=== PATIENT | female | born 1945 | race Caucasian/White ===

== ENCOUNTER 2017-06-28 09:19 | Emergency (ER) | payer MEDICARE ==
[2017-06-28] MEDS ORDERED: Diazepam 5 MG TAB ONE (11:29)
[2017-06-28] MEDS ORDERED: HYDROcodone/Acetaminophen 10/325 mg Tablet ONE (11:29)
--- NOTE | 2017-06-28 11:35 | RAD ---
2 VIEWS LEFT FEMUR: Date: 06/28/17 COMPARISON: None. HISTORY: Left lower extremity pain after fall. COMPARISON: 08/12/16. FINDINGS: Two views of the left femur show the patient to be status post intramedullary pierre fixation of a femu r fracture which appears healed. No acute fracture or dislocation is seen. No perihardware lucency i s identified. IMPRESSION: No evidence of acute osseous abnormality. POS: [facility]
--- NOTE | 2017-06-28 11:36 | RAD ---
2 VIEWS LEFT HIP: Date: 06/28/17 COMPARISON: None. HISTORY: Fall with left hip pain and left leg pain. FINDINGS: Two views of the left hip show no evidence of acute fracture or dislocation. There is hardware in th e proximal femur from prior fracture repair. No degenerative changes seen in the left hip. IMPRESSION: No evidence of acute osseous abnormality of the left hip. POS: [facility]
== END 2017-06-28 13:39 | disposition home or self-care (01) ==
LOC: ERS 09:19
DX: M79.652 Pain in left thigh (principal); M25.552 Pain in left hip; M25.562 Pain in left knee; W18.09XA Striking against other object with subsequent fall, initial encounter
CPT/HCPCS: 51701

== ENCOUNTER 2017-07-03 10:17 | Inpatient (IN) | payer MEDICARE ==
[2017-07-03] MEDS ORDERED: Morphine 10 MG/ML VIAL ONE (11:32)
[2017-07-03] MEDS ORDERED: Ketorolac Tromethamine 30 MG/ML VIAL ONE (11:32)
[2017-07-03 11:33] LABS: Prothrombin Time 13.9 SEC (12.0-14.7)
[2017-07-03 11:34] LABS: PTT 40.3 SEC (22.9-36.1)
[2017-07-03 11:36] LABS: #Eosinphils 0.3 thou/uL (0.0-0.7); #Lymphocytes 1.9 thou/uL (1.20-3.40); #Monocytes 1.1 thou/uL (0.11-0.59); %Basophils 0.2 % (0.0-1.0); %Eosinophils 1.3 % (0.0-10.0); %Lymphocytes 9.8 % (21.0-51.0); %Monocytes 5.9 % (0.0-10.0); Hematocrit 43.5 % (36.0-47.0); Mean Platelet Volume 6.5 fL (7.4-10.4); White Blood Cell (WBC) Count 19.3 thou/uL (4.8-10.8)
[2017-07-03 11:52] LABS: ALT (SGPT) 11 U/L (8-55); AST (SGOT) 18 U/L (5-34); Alkaline Phosphatase 123 U/L (40-150); Anion Gap 15 mmol/L (10-20); BUN (Urea Nitrogen) 13 mg/dL (9.8-20.1); Bilirubin, Total 0.5 mg/dL (0.2-1.2); Calc. Creatinine Clearance 0 mL/min (70-130); Calcium 10.5 mg/dL (7.8-10.44); Carbon Dioxide 26 mmol/L (23-31); Chloride 105 mmol/L (98-107); Estimated GFR-MDRD 74
--- NOTE | 2017-07-03 12:40 | CT ---
CT OF PELVIS PERFORMED WITHOUT CONTRAST ENHANCEMENT: HISTORY: Fall with persistent hip pain. FINDINGS: The bones are demineralized. There are arthritic changes of the lower lumbar spine. There is sigmo id diverticulosis noted. The pelvic ring is intact. No signs of any fractures of the bony pelvic ring. Intramedullary pierre is seen within the femoral shaft. There is an acute-appearing fracture which is basically an intratrochanteric fracture along the base of the femoral neck and intratrochanteric reg ion. Minimal displacement is seen associated with this. IMPRESSION: Intratrochanteric acute-appearing fracture of the left hip. Findings telephoned to Dr. Hopson. CODE CR POS: [facility]
--- NOTE | 2017-07-03 12:59 | RAD ---
LEFT FEMUR FOUR VIEWS: 07/03/17 HISTORY: Fall. The bones are demineralized. There is an intertrochanteric fracture of the left hip. An intramedulla ry pierre stables an older distal femoral shaft fracture in place. IMPRESSION: Intertrochanteric fracture of the left hip with a minimal coxa vera deformity to the fracture. POS: [facility]
[2017-07-03] MEDS ORDERED: Fleet Enema 133 ML BOT PR PRN (13:40)
[2017-07-03] MEDS ORDERED: traMADol HCl 50 MG TAB PO PRN ×3 (13:40→20:33)
[2017-07-03] MEDS ORDERED: Ondansetron HCl/PF 4 MG/2 ML Vial IVP PRN ×3 (13:40→20:33)
[2017-07-03] MEDS ORDERED: Milk Of Magnesia 30 ML UDCUP PO PRN (13:40)
[2017-07-03] MEDS ORDERED: Ondansetron ODT 4 MG TAB PO PRN ×2 (13:40→20:33)
[2017-07-03] MEDS ORDERED: Bisacodyl 10 MG SUPP PR PRN (13:40)
[2017-07-03] MEDS ORDERED: CEFAZOLIN/Water 2 GM/20 ML SYRINGE SLOW IVP SCH (13:45)
[2017-07-03] MEDS ORDERED: Sodium Chloride 0.9% 1,000 ML IV SCH (13:45)
--- NOTE | 2017-07-03 14:00 | RAD ---
PORTABLE CHEST: Date: 07/03/17 PROVIDED CLINICAL HISTORY: Preop. FINDINGS: Comparison made with the study dated 08/05/16. The cardiac and mediastinal silhouette is within normal limits. No focal consolidation, pleural flui d, or pneumothorax apparent. Vascular calcification involves the aortic arch. IMPRESSION: No evidence for an acute cardiopulmonary process. POS: [facility]
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
[2017-07-03] MEDS ORDERED: CEFAZOLIN/Water 2 GM/20 ML SYRINGE ONE (16:04)
[2017-07-03] MEDS ORDERED: Midazolam HCl 2 mg/2 ml Vial ONE (16:54)
[2017-07-03] MEDS ORDERED: Fentanyl 100 MCG/2 ML VIAL ONE (16:55)
[2017-07-03] MEDS ORDERED: Acetaminophen 650 MG in Premix Bag 1 BAG IVPB SCH (17:00)
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
[2017-07-03] MEDS ORDERED: PHENYLEPHRINE-NS 100 MCG/ML 10 ML SYRINGE ONE (17:14)
[2017-07-03] MEDS ORDERED: Dexamethasone 20 MG/5 ML VIAL ONE (17:14)
[2017-07-03] MEDS ORDERED: Propofol 200 MG/20 ML VIAL ONE (17:14)
[2017-07-03] MEDS ORDERED: ePHEDrine/0.9% NaCl/PF SYRINGE 50 mg/10 ml ONE (17:14)
[2017-07-03] MEDS ORDERED: Phenylephrine 10 MG/NS 250 ML 250 ML ONE (17:59)
[2017-07-03] MEDS ORDERED: Ketorolac Tromethamine 30 MG/ML VIAL IVP SCH (18:00)
[2017-07-03] MEDS ORDERED: Diprivan 20 ML ONE (19:03)
[2017-07-03] MEDS ORDERED: Promethazine HCl 25 MG/ML VIAL SLOW IVP PRN (19:07)
[2017-07-03] MEDS ORDERED: Morphine Sulfate 2 MG/ML SYRINGE SLOW IVP PRN (19:07)
[2017-07-03] MEDS ORDERED: Promethazine HCl 25 MG/ML VIAL IM PRN ×2 (19:07→20:33)
[2017-07-03] MEDS ORDERED: Dextrose 5% in Water 1,000 ML IV PRN (20:33)
[2017-07-03] MEDS ORDERED: Dextrose 50% Abboject 50 ML SYRINGE SLOW IVP PRN (20:33)
[2017-07-03] MEDS ORDERED: hydrALAZINE 20 MG/ML VIAL SLOW IVP PRN (20:33)
[2017-07-03] MEDS ORDERED: Docusate 100 MG CAP PO SCH (21:00)
[2017-07-03] MEDS: traMADol HCl 50 MG TAB PO PRN (21:35)
[2017-07-03] MEDS: Famotidine/PF 20 mg/2ml Vial SLOW IVP SCH (21:37)
[2017-07-03] MEDS: Ketorolac Tromethamine 30 MG/ML VIAL IVP SCH ×2 (23:02)
[2017-07-03] MEDS: Acetaminophen 500 MG TAB PO SCH (23:04)
[2017-07-03] MEDS: CEFAZOLIN/Water 2 GM/20 ML SYRINGE SLOW IVP SCH (23:54)
--- NOTE | 2017-07-03 23:59 | OP ---
DATE OF PROCEDURE: 07/03/2017 OPERATIONS: 1. Left femur intramedullary nail removal. 2. Left femur intramedullary nail placement for intertrochanteric femur fracture. PREOPERATIVE DIAGNOSIS: Left femur periprosthetic intertrochanteric femur fracture. POSTOPERATIVE DIAGNOSIS: Left femur periprosthetic intertrochanteric femur fracture. COMPLICATIONS: None. ESTIMATED BLOOD LOSS: 200 mL SURGEON: Don Helms M.D. PROFESSIONAL ATHLETES COACH: Richard Meredith PA-C. INDICATIONS: Ms. Barajas is a 72-year-old female, who has fractured her intertrochanteric femur on the left side. She has an intramedullary nail in place related to a past distal femur fracture. She h as been indicated now for intramedullary nail placement and removal of her old nail to fix her inter trochanteric femur fracture. Risks have been reviewed in detail. She has elected to proceed with t he operation. DESCRIPTION OF PROCEDURE: Ms. Barajas was identified in the preoperative holding area. Her correct ex tremity was marked. She was carried to the operating room. She was positioned supine. General ane sthesia was induced. She was placed on the fracture table. The left lower extremity was prepped an d draped in sterile fashion. We began the procedure with an incision over the greater trochanter. We dissected down through the subcutaneous tissues to the fascia, which was incised. We used the guidewire to palpate the tip of her previous intramedullary nail. Once we found the nail, we exposed the proximal surface. We then removed the end cap. Next, we inserted our extraction device. At this point, we removed the proxi mal and distal cross lock screws. We used x-ray to guide this. We then backslapped the nail out of the femoral canal. Next, we reduced the fracture using the traction table. Once obtained appropri ate reduction, we inserted our guidewire for our start point. We then inserted a 9 mm Synthes femor al nail from proximal to distal. This was placed under x-ray guidance. At this point, we inserted our guidewire into the center of the femoral head. We then overreamed this and placed our helical b lade appropriately. This was locked into position. Next, we placed a distal cross lock screw using perfect [place] technique. We thoroughly irrigated with copious lavage. We then closed with a #1 V icryl suture, 2-0 Vicryl suture, and shivani for the skin. A sterile dressing was applied. The pat ient was taken to the recovery room in good condition without complication. IMPLANTS: A Synthes trochanteric femoral nail size 9 mm with helical blade.
[2017-07-04 00:19] VITALS: BMI 18.3
[2017-07-04] MEDS: traMADol HCl 50 MG TAB PO PRN ×3 (03:28→17:42)
[2017-07-04] MEDS: Sodium Chloride 0.9% 1,000 ML IV SCH ×2 (04:23→05:53)
[2017-07-04] MEDS: Acetaminophen 500 MG TAB PO SCH ×3 (05:44→17:37)
[2017-07-04] MEDS: Ketorolac Tromethamine 30 MG/ML VIAL IVP SCH ×3 (05:45→17:38)
[2017-07-04 08:18] LABS: #Basophils 0.1 thou/uL (0.0-0.2); #Lymphocytes 1.4 thou/uL (1.20-3.40); #Monocytes 1.9 thou/uL (0.11-0.59); #Neutrophils 13.7 thou/uL (1.40-6.50); %Basophils 0.4 % (0.0-1.0); %Eosinophils 0.1 % (0.0-10.0); %Lymphocytes 8.2 % (21.0-51.0); %Monocytes 11.1 % (0.0-10.0); Hematocrit 33.4 % (36.0-47.0); Mean Platelet Volume 6.6 fL (7.4-10.4); Red Blood Cell (RBC) Count 3.66 mill/uL (4.20-5.40)
[2017-07-04 08:35] LABS: Anion Gap 15 mmol/L (10-20); BUN (Urea Nitrogen) 16 mg/dL (9.8-20.1); Calc. Creatinine Clearance 57 mL/min (70-130); Calcium 9.5 mg/dL (7.8-10.44); Carbon Dioxide 23 mmol/L (23-31); Chloride 108 mmol/L (98-107); Estimated GFR-MDRD 80; Magnesium 1.9 mg/dL (1.6-2.6); Phosphorus 3.3 mg/dL (2.3-4.7)
[2017-07-04] MEDS ORDERED: FLU VACC TS2017-18 (>65YR) 0.5 ML SYRINGE IM ONE (09:00)
[2017-07-04] MEDS: Famotidine/PF 20 mg/2ml Vial SLOW IVP SCH ×2 (10:06→21:08)
[2017-07-04] MEDS: CEFAZOLIN/Water 2 GM/20 ML SYRINGE SLOW IVP SCH (10:07)
[2017-07-04] MEDS ORDERED: traMADol HCl 50 MG TAB PO PRN (12:57)
[2017-07-04] MEDS: Senokot S 8.6-50 MG TAB PO SCH (21:08)
[2017-07-05] MEDS: Ketorolac Tromethamine 30 MG/ML VIAL IVP SCH ×3 (00:04→14:41)
[2017-07-05] MEDS: Acetaminophen 500 MG TAB PO SCH ×3 (00:04→12:46)
--- NOTE | 2017-07-05 01:14 | PRG-2 ---
DATE OF ADMISSION: 07/03/2017 DATE OF SERVICE: 07/04/2017 SUBJECTIVE: This is a 72-year-old female who came in after a ground level fall and was found to hav e an intertrochanteric fracture of the left hip. She is status post repair, day #1. She reports do ing well. Pain being well controlled this morning, was asking questions about rehabilitation and koby is yet to work with PT and OT as tolerated. Diet okay. Denies any chest pain or shortness of monet ath. The patient did seem confused, did not quite know questions, did not know if she was at [facility] or in her room, did have repeated questions about rehabilitation. No other concerns o r complaints. OBJECTIVE: VITAL SIGNS: Temperature was 98.1, pulse of 81, respirations 12, O2 sats 94% on room air, and blood pressure is 113/76. GENERAL: She is an alert and oriented x2, no acute distress. HEENT: Normocephalic and atraumatic. PULMONARY: Clear to auscultation bilaterally. No wheezes or crackles. CARDIOVASCULAR: Regular rate and rhythm. No murmurs or gallops. ABDOMEN: Soft, nontender, nondistended. No masses. EXTREMITIES: Moves upper extremities well and able to move lower extremities. NEUROLOGIC: No focal neuro deficit. GCS 15. SKIN: Warm and dry. LABORATORY DATA: White blood cell count of 7.0, hemoglobin 11.2, hematocrit 33.3, and platelet coun t 322. Sodium 141, potassium 1.5, chloride 108, carbon dioxide 23, creatinine 0.71, BUN 16, glucose 115, calcium 9.5, phosphorus 3.3, and magnesium 1.9. No new imaging to be reviewed at this time. ASSESSMENT: 1. Status post fall. 2. Intertrochanteric fracture of the hip status post repair, postop day #1. 3. Acute traumatic pain. PLAN: We will have her work with PT and OT. We will consult for rehab screening for rehab placemen t and the patient states that she had [facility] to [facility] before. We will await rehab screenin g. We will continue to manage pain. We will assess pain after she has worked with PT and OT and ad just pain management as needed. We will continue to check labs and replace electrolytes as needed. No other issues at this time. The patient was seen and plan of care was discussed with Dr. Patel.
[2017-07-05] MEDS ORDERED: Polyethylene Glycol 3350 17 GM Packet PO SCH (09:00)
[2017-07-05] MEDS: Senokot S 8.6-50 MG TAB PO SCH (09:02)
[2017-07-05] MEDS: traMADol HCl 50 MG TAB PO PRN ×2 (09:02→10:51)
[2017-07-05] MEDS: Famotidine/PF 20 mg/2ml Vial SLOW IVP SCH (09:05)
[2017-07-05 11:54] VITALS: BP 114/77; TEMP 98.3
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
--- NOTE | 2017-07-07 17:43 | RAD ---
INTRAOPERATIVE FLUOROSCOPY: History: Left femur hardware removal and replacement. Comparison: None. Fluoroscopic time: 69.6 seconds, 6.67 mGy*cm\S\2. FINDINGS: There is evidence of an intramedullary pierre with a single distal interlocking screw. === and nail raul ntified as well in the proximal aspect of the left femur. Tracks from previous internal fixation hardware is noted. IMPRESSION: Fluoroscopy as above. POS: [facility]
== END 2017-07-05 14:35 | DRG 482 ==
LOC: ERS 10:17 → SDC 16:01 → SURG A 20:09
PROVIDERS: ADMIT Surgery; ATTEND Surgery
PROC: 0QS706Z Reposition Left Upper Femur with Intramedullary Internal Fixation Device, Open Approach (ICD-10-PCS; principal; 2017-07-03)
PROC: 0QP604Z Removal of Internal Fixation Device from Right Upper Femur, Open Approach (ICD-10-PCS; 2017-07-03)
DX: S72.142A Displaced intertrochanteric fracture of left femur, initial encounter for closed fracture (principal); I10 Essential (primary) hypertension; Z87.81 Personal history of (healed) traumatic fracture; Z91.041 Radiographic dye allergy status; Z88.8 Allergy status to other drugs, medicaments and biological substances; W19.XXXA Unspecified fall, initial encounter
CPT/HCPCS: 36415; 51702; 71010; 72192; 76001; 80048; 80053; 83735; 84100; 85025; 85610; 85730; 86850; 86900; 86901; 90471; 90682; 93005; 96374; 96375; C1713; C1769; G0008; G8978-GP-CL; G8979-GP-CI; G8987-GO-CK; G8988-GO-CI; J0131; J1100; J1885; J2250; J2270; J2704; J3010; Q2036; S0028

== ENCOUNTER 2019-11-14 07:10 | Emergency (ER) | payer MEDICARE ==
[2019-11-14] MEDS ORDERED: Morphine 4 MG/ML VIAL ONE (07:53)
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
--- NOTE | 2019-11-14 12:23 | CT ---
CT Lower Ext Lt WO Con History: Pain. Comparison: None. Findings: The intrapelvic soft tissues demonstrate high-grade diverticular disease sigmoid colon. Int ramedullary nail of the left femur. There is mild atrophy of the gluteus musculature. Old distal femoral fracture. There is an impacted lateral tibial plateau fracture without significant articular surface depression . This involves nearly the entirety of the lateral tibial plateau articular surface. Moderate joint effusion. Medial tibial plateau and femoral condyles are intact. Bones are demineralized. Impression: 1. Practically nondisplaced lateral tibial plateau fracture without significant articular depression and moderate joint effusion. 2. Fluid tracking along the medial head gastrocnemius and soleus may be sequelae of popliteus bursa r upture.
[2019-11-14] MEDS ORDERED: Morphine 2 MG/ML SYRINGE ONE (14:47)
== END 2019-11-14 16:24 | disposition home or self-care (01) ==
LOC: ERS 07:10
DX: S82.145A Nondisplaced bicondylar fracture of left tibia, initial encounter for closed fracture (principal); I10 Essential (primary) hypertension; K21.9 Gastro-esophageal reflux disease without esophagitis; E78.00 Pure hypercholesterolemia, unspecified; Z79.899 Other long term (current) drug therapy; W19.XXXA Unspecified fall, initial encounter
CPT/HCPCS: 27532; 96374; 96376; J2270